=== PATIENT | male | born 1955 | race Caucasian/White ===

== ENCOUNTER → 2025-03-14 | Outpatient (CLI) | payer MEDICARE | LOC: M SOG 07:22 | PROVIDERS: ATTEND Neuromusculoskeletal Medicine, Sports Medicine | DX: M25.562 Pain in left knee (principal) ==

== ENCOUNTER → 2025-04-07 | Outpatient (REF) | payer MEDICARE | LOC: M SFHCDERM 13:22 | PROVIDERS: ATTEND Nurse Practitioner Family | DX: C44.619 Basal cell carcinoma of skin of left upper limb, including shoulder (principal) ==

== ENCOUNTER → 2025-05-04 | Outpatient (CLI) | payer MEDICARE | LOC: M PLAIMG 13:35 → EDUNIT# 14:00 | PROVIDERS: ATTEND Family Medicine | DX: R01.1 Cardiac murmur, unspecified (principal); I77.810 Thoracic aortic ectasia; I34.89 Other nonrheumatic mitral valve disorders ==

== ENCOUNTER → 2025-05-19 | Outpatient (REF) | payer MEDICARE | LOC: M SFHCDERM 18:36 | PROVIDERS: ATTEND Physician Assistant | DX: C44.91 Basal cell carcinoma of skin, unspecified (principal) ==